=== PATIENT | male | born 1970 | race Caucasian/White ===

== ENCOUNTER 2016-11-11 19:57 | Inpatient (IN) | payer MEDICAID ==
[~2016-11-11] VITALS: Ht 167.6 cm; Wt 90.0 kg
[2016-11-11 22:40] LABS: BASOPHIL % 1.2 % (0-2); PLATELET COUNT 320 x10^3mcL (130-400); RED CELL DISTRIBUTION WIDTH 13.7 % (11.5-14.5)
[2016-11-11 22:51] LABS: CALCIUM 8.4 mg/dL (8.5-10.1); CARBON DIOXIDE 24.8 mmol/L (21-32); CHLORIDE SERUM 104 mmol/L (98-107); CREATININE SERUM 1.2 mg/dL (0.7-1.3); GFR1 > 60 mL/min; GLUCOSE SERUM 114 mg/dL (74-106); POTASSIUM SERUM 3.8 mmol/L (3.5-5.1); SODIUM SERUM 138 mmol/L (136-145)
[2016-11-11 22:54] LABS: ALKALINE PHOSPHATASE 80 U/L (46-116); ALT/SGPT 32 U/L (16-63); AST/SGOT 21 U/L (15-37); BILIRUBIN TOTAL 0.1 mg/dL (0.20-1.00); TOTAL PROTEIN, SERUM 7.4 g/dL (6.4-8.2)
[2016-11-12 00:07] VITALS: BP 92/73
[2016-11-12 00:19] LABS: MAGNESIUM 1.9 mg/dL (1.8-2.4); PHOSPHOROUS 3.4 mg/dL (2.5-4.9)
[2016-11-12 00:21] LABS: CHOLESTEROL/HDL RATIO 4.8
[2016-11-12 00:24] LABS: FREE T4 1.07 ng/dL (0.76-1.46); FREE THYROXINE INDEX 2.3 ug/dL (1.4-4.5); T4(THYROXINE) 6.5 ug/dL (4.7-13.3)
[2016-11-12 00:27] LABS: T3 TOTAL 1.31 ng/mL
[2016-11-12 05:20] VITALS: BP 114/67
[2016-11-12 05:43] LABS: microscopic required? NO
[2016-11-12 05:52] LABS: UA SPECIFIC GRAVITY 1.025 (1.005-1.035); urine erythrocyte NEGATIVE (NEGATIVE)
[2016-11-12 07:17] LABS: BASOPHIL % 0.1 % (0-2); PLATELET COUNT 303 x10^3mcL (130-400); RED CELL DISTRIBUTION WIDTH 13.4 % (11.5-14.5)
[2016-11-12 07:48] LABS: CALCIUM 8.3 mg/dL (8.5-10.1); CARBON DIOXIDE 23.8 mmol/L (21-32); CHLORIDE SERUM 107 mmol/L (98-107); GFR1 > 60 mL/min; GLUCOSE SERUM 146 mg/dL (74-106); MAGNESIUM 1.9 mg/dL (1.8-2.4); PHOSPHOROUS 3.5 mg/dL (2.5-4.9); POTASSIUM SERUM 4.8 mmol/L (3.5-5.1); SODIUM SERUM 142 mmol/L (136-145)
[2016-11-12 07:50] VITALS: BP 114/67
[2016-11-12] MEDS ORDERED: ZIT250 PO (10:23)
[2016-11-12 10:32] VITALS: BP 114/67
[2016-11-12 12:59] VITALS: BP 112/56
== END 2016-11-12 13:40 | disposition home or self-care (01) | DRG 139 ==
LOC: ED 19:57 → DU 22:41
PROVIDERS: Emergency Medicine; Family Medicine; ADMIT Student in an Organized Health Care Education/Training Program
DX: J18.9 Pneumonia, unspecified organism (principal); E44.0 Moderate protein-calorie malnutrition; E83.51 Hypocalcemia; E11.65 Type 2 diabetes mellitus with hyperglycemia; E46 Unspecified protein-calorie malnutrition; D64.9 Anemia, unspecified; F17.210 Nicotine dependence, cigarettes, uncomplicated; Z85.520 Personal history of malignant carcinoid tumor of kidney; Z90.5 Acquired absence of kidney
CPT/HCPCS: 36600; 82962; 83880; 84439; J0696; J1956; J7030; J7512; J7613; J7644; Q0092

== ENCOUNTER 2017-02-01 11:05 | Inpatient (IN) | payer MEDICAID ==
[~2017-02-01] VITALS: Ht 175.3 cm; Wt 87.7 kg
[~2017-02-01 11:05] MED LIST: ZIT250 PO
[2017-02-01 13:26] LABS: BASOPHIL % 0.6 % (0-2); PLATELET COUNT 206 x10^3mcL (130-400)
[2017-02-01 13:33] LABS: CALCIUM 8.6 mg/dL (8.5-10.1); CARBON DIOXIDE 29.6 mmol/L (21-32); CHLORIDE SERUM 103 mmol/L (98-107); GFR1 > 60 mL/min; GLUCOSE SERUM 97 mg/dL (74-106); POTASSIUM SERUM 4.1 mmol/L (3.5-5.1); SODIUM SERUM 138 mmol/L (136-145)
[2017-02-01 17:03] VITALS: BP 124/78
[2017-02-01 17:16] VITALS: BP 128/78
[2017-02-01 17:28] VITALS: BP 128/78
[2017-02-01 17:34] LABS: T3 TOTAL 1.18 ng/mL
[2017-02-01 17:37] VITALS: Ht 175.3 cm; Wt 87.7 kg
[2017-02-01 17:38] LABS: MAGNESIUM 1.9 mg/dL (1.8-2.4); PHOSPHOROUS 3.7 mg/dL (2.5-4.9)
[2017-02-01 18:00] LABS: FREE T4 0.97 ng/dL (0.76-1.46); FREE THYROXINE INDEX 2.7 ug/dL (1.4-4.5); T4(THYROXINE) 7.4 ug/dL (4.7-13.3)
[2017-02-01 21:20] VITALS: BP 113/64
[2017-02-02 06:01] VITALS: BP 123/65
[2017-02-02 07:52] LABS: BASOPHIL % 0.4 % (0-2); PLATELET COUNT 198 x10^3mcL (130-400)
[2017-02-02 07:53] LABS: RED CELL DISTRIBUTION WIDTH 14.9 % (11.5-14.5)
[2017-02-02 08:00] VITALS: BP 110/70
[2017-02-02 08:30] VITALS: BP 110/70
[2017-02-02 12:10] LABS: microscopic required? YES; urine erythrocyte TRACE (NEGATIVE)
[2017-02-02 12:30] LABS: AMPHETAMINE QUAL UR NONE DETECTED (NEG <=1000)
[2017-02-02 12:43] VITALS: BP 114/61
[2017-02-02 17:47] VITALS: BP 108/72
[2017-02-02 20:52] VITALS: BP 113/79
[2017-02-03 05:40] VITALS: BP 101/68
[2017-02-03 06:40] LABS: BASOPHIL % 0.5 % (0-2); PLATELET COUNT 186 x10^3mcL (130-400)
[2017-02-03 06:41] LABS: RED CELL DISTRIBUTION WIDTH 14.7 % (11.5-14.5)
[2017-02-03 06:56] LABS: CALCIUM 8.3 mg/dL (8.5-10.1); CARBON DIOXIDE 26.7 mmol/L (21-32); CHLORIDE SERUM 106 mmol/L (98-107); CREATININE SERUM 1.1 mg/dL (0.7-1.3); GFR1 > 60 mL/min; GLUCOSE SERUM 105 mg/dL (74-106); PHOSPHOROUS 3.3 mg/dL (2.5-4.9); POTASSIUM SERUM 4.1 mmol/L (3.5-5.1); SODIUM SERUM 141 mmol/L (136-145)
[2017-02-03 08:53] VITALS: BP 114/57
[2017-02-03 12:04] VITALS: BP 114/74
[2017-02-03 18:00] VITALS: BP 141/81
[2017-02-03 21:31] VITALS: BP 120/63
[2017-02-04 05:48] VITALS: BP 118/72
[2017-02-04 06:52] LABS: BASOPHIL % 0.5 % (0-2); PLATELET COUNT 182 x10^3mcL (130-400)
[2017-02-04 07:09] LABS: RED CELL DISTRIBUTION WIDTH 14.9 % (11.5-14.5)
[2017-02-04 07:39] LABS: CALCIUM 8.5 mg/dL (8.5-10.1); CARBON DIOXIDE 26.8 mmol/L (21-32); CHLORIDE SERUM 105 mmol/L (98-107); CREATININE SERUM 1.2 mg/dL (0.7-1.3); GFR1 > 60 mL/min; GLUCOSE SERUM 107 mg/dL (74-106); MAGNESIUM 1.7 mg/dL (1.8-2.4); PHOSPHOROUS 3.9 mg/dL (2.5-4.9); POTASSIUM SERUM 4.3 mmol/L (3.5-5.1); SODIUM SERUM 140 mmol/L (136-145)
[2017-02-04 09:38] VITALS: BP 118/72
[2017-02-04 13:02] VITALS: BP 114/72
[2017-02-04 14:30] VITALS: BP 122/71
[2017-02-04 17:29] VITALS: BP 109/66
[2017-02-04 20:50] VITALS: BP 110/67
[2017-02-04 22:06] LABS: microscopic required? NO
[2017-02-04 22:15] LABS: UA SPECIFIC GRAVITY 1.015 (1.005-1.035); urine erythrocyte NEGATIVE (NEGATIVE)
[2017-02-05 06:02] VITALS: BP 122/77
[2017-02-05 06:29] LABS: CALCIUM 8.4 mg/dL (8.5-10.1); CHLORIDE SERUM 105 mmol/L (98-107); CREATININE SERUM 1.2 mg/dL (0.7-1.3); GFR1 > 60 mL/min; GLUCOSE SERUM 100 mg/dL (74-106); MAGNESIUM 1.7 mg/dL (1.8-2.4); POTASSIUM SERUM 4.3 mmol/L (3.5-5.1); SODIUM SERUM 140 mmol/L (136-145)
[2017-02-05] MEDS ORDERED: ATORVASTATIN CA40 M1 PO (08:50)
[2017-02-05] MEDS ORDERED: LEVAQUIN750 MG PO (08:50)
[2017-02-05] MEDS ORDERED: LAC PO (08:51)
[2017-02-05] MEDS ORDERED: MAG PO (08:51)
[2017-02-05 13:01] VITALS: BP 124/74
[2017-02-05 14:28] VITALS: BP 124/74
== END 2017-02-05 15:19 | disposition home or self-care (01) | DRG 137 ==
LOC: ED 11:05 → DU 16:06
PROVIDERS: Emergency Medicine Emergency Medical Services; Internal Medicine; Student in an Organized Health Care Education/Training Program; ADMIT Family Medicine Sports Medicine
PROC: 0BB48ZX Excision of Right Upper Lobe Bronchus, Via Natural or Artificial Opening Endoscopic, Diagnostic (ICD-10-PCS; 2017-02-04)
PROC: 0BBD8ZX Excision of Right Middle Lung Lobe, Via Natural or Artificial Opening Endoscopic, Diagnostic (ICD-10-PCS; 2017-02-04)
PROC: 0BBF8ZX Excision of Right Lower Lung Lobe, Via Natural or Artificial Opening Endoscopic, Diagnostic (ICD-10-PCS; principal; 2017-02-04 14:00)
DX: J69.0 Pneumonitis due to inhalation of food and vomit (principal); D68.69 Other thrombophilia; B44.81 Allergic bronchopulmonary aspergillosis; E11.9 Type 2 diabetes mellitus without complications; J44.9 Chronic obstructive pulmonary disease, unspecified; E78.2 Mixed hyperlipidemia; R31.9 Hematuria, unspecified; Z90.5 Acquired absence of kidney; Z68.28 Body mass index [BMI] 28.0-28.9, adult; F17.210 Nicotine dependence, cigarettes, uncomplicated; Z85.520 Personal history of malignant carcinoid tumor of kidney; Z91.19 Patient's noncompliance with other medical treatment and regimen
CPT/HCPCS: 82962; 83880; 84439; 87116; 87206; 90658; 94150; C9113; J0330; J2250; J2270; J2543; J2704; J3010; J7030; J7042; J7120; J7620; Q0092; Q9967

== ENCOUNTER 2017-05-07 13:07 | Emergency (ER) | payer SELFPAY ==
[~2017-05-07] VITALS: Ht 167.6 cm; Wt 86.6 kg
[~2017-05-07 13:07] MED LIST changes: +ATORVASTATIN CA40 M1 PO; +LAC PO; +LEVAQUIN750 MG PO; +MAG PO
[2017-05-07 13:21] VITALS: Ht 167.6 cm; Wt 86.6 kg
[2017-05-07 17:23] LABS: PLATELET COUNT 241 x10^3mcL (130-400); RED CELL DISTRIBUTION WIDTH 12.8 % (11.5-14.5)
[2017-05-07 17:24] LABS: BASOPHIL % 2.4 % (0-2); CALCIUM 7.8 mg/dL (8.5-10.1); CARBON DIOXIDE 28.6 mmol/L (21-32); CHLORIDE SERUM 107 mmol/L (98-107); GFR1 > 60 mL/min; GLUCOSE SERUM 96 mg/dL (74-106); POTASSIUM SERUM 4.2 mmol/L (3.5-5.1); SODIUM SERUM 139 mmol/L (136-145)
[2017-05-07 17:37] LABS: ALKALINE PHOSPHATASE 79 U/L (46-116); ALT/SGPT 26 U/L (16-63); AST/SGOT 13 U/L (15-37); BILIRUBIN TOTAL 0.15 mg/dL (0.20-1.00); C REACTIVE PROTEIN 1.3 mg/dL (<=0.9); CREATINE KINASE 71 U/L (39-308); TOTAL PROTEIN, SERUM 6.3 g/dL (6.4-8.2)
[2017-05-07 17:39] LABS: ALBUMIN 2.9 g/dL (3.4-5.0)
[2017-05-07 18:06] LABS: ERYTHROCYTE SED RATE 20 mm/hr (0-15)
[2017-05-07 18:47] LABS: CK-MB < 0.5 ng/mL (0-3.6)
[2017-05-07 19:26] VITALS: BP 124/82
[2017-05-07 23:48] LABS: FREE T4 1.09 ng/dL (0.76-1.46); FREE THYROXINE INDEX 2.5 ug/dL (1.4-4.5); T4(THYROXINE) 6.5 ug/dL (4.7-13.3)
[2017-05-08 13:50] LABS: T3 TOTAL 1.08 ng/mL
== END 2017-05-07 19:32 | disposition home or self-care (01) ==
LOC: ED 13:07
PROVIDERS: Specialist
DX: R91.8 Other nonspecific abnormal finding of lung field (principal); M54.5 Low back pain; R04.2 Hemoptysis; F17.210 Nicotine dependence, cigarettes, uncomplicated
CPT/HCPCS: 36600; 83880; 84439; J0696; J1170; J1885; Q0162; Q9967

== ENCOUNTER 2017-10-22 21:01 | Emergency (ER) | payer MEDICAID ==
[~2017-10-22] VITALS: Ht 175.3 cm; Wt 82.1 kg
[2017-10-22 21:09] VITALS: Ht 175.3 cm; Wt 82.1 kg
[2017-10-22 23:07] LABS: CARBON DIOXIDE 29.5 mmol/L (21-32); CHLORIDE SERUM 102 mmol/L (98-107); CREATININE SERUM 1.3 mg/dL (0.7-1.3); GFR1 > 60 mL/min; GLUCOSE SERUM 104 mg/dL (74-106); POTASSIUM SERUM 3.9 mmol/L (3.5-5.1); SODIUM SERUM 137 mmol/L (136-145)
[2017-10-22 23:12] LABS: ALBUMIN 3.5 g/dL (3.4-5.0); ALKALINE PHOSPHATASE 112 U/L (46-116); ALT/SGPT 31 U/L (16-63); AST/SGOT 22 U/L (15-37); BILIRUBIN TOTAL 0.23 mg/dL (0.20-1.00)
[2017-10-22 23:17] LABS: BASOPHIL % 0.5 % (0-2); PLATELET COUNT 249 x10^3mcL (130-400); RED CELL DISTRIBUTION WIDTH 13.6 % (11.5-14.5)
[2017-10-23 02:03] VITALS: BP 94/71
== END 2017-10-23 02:03 | disposition home or self-care (01) ==
LOC: ED 21:01
PROVIDERS: Emergency Medicine
DX: J18.9 Pneumonia, unspecified organism (principal)
CPT/HCPCS: J0456; J0696; J1885; J2270; J2405; J7040; J7050

== ENCOUNTER 2017-10-28 22:46 | Inpatient (IN) | payer MEDICAID ==
[~2017-10-28] VITALS: Ht 167.6 cm; Wt 85.8 kg
[2017-10-28 23:58] LABS: BASOPHIL % 0.5 % (0-2); PLATELET COUNT 262 x10^3mcL (130-400); RED CELL DISTRIBUTION WIDTH 13.8 % (11.5-14.5)
[2017-10-29] VITALS (8 sets, daily range): BP systolic 98–128; BP diastolic 55–82
[2017-10-29 00:08] LABS: CALCIUM 8.5 mg/dL (8.5-10.1); CARBON DIOXIDE 26.8 mmol/L (21-32); CHLORIDE SERUM 105 mmol/L (98-107); CREATININE SERUM 1.1 mg/dL (0.7-1.3); GFR1 > 60 mL/min; GLUCOSE SERUM 140 mg/dL (74-106); POTASSIUM SERUM 3.6 mmol/L (3.5-5.1); SODIUM SERUM 140 mmol/L (136-145)
[2017-10-29 00:21] LABS: ALKALINE PHOSPHATASE 107 U/L (46-116); ALT/SGPT 68 U/L (16-63); AST/SGOT 31 U/L (15-37); BILIRUBIN TOTAL 0.2 mg/dL (0.20-1.00)
[2017-10-29 00:24] LABS: ALBUMIN 3.2 g/dL (3.4-5.0)
[2017-10-29 03:08] LABS: PHOSPHOROUS 3.8 mg/dL (2.5-4.9)
[2017-10-29 03:12] LABS: AMPHETAMINE QUAL UR NONE DETECTED (See below)
[2017-10-29 06:22] LABS: UA SPECIFIC GRAVITY >=1.030 (1.005-1.035); microscopic required? YES; urine erythrocyte 1+ (NEGATIVE)
[2017-10-30 05:41] VITALS: BP 123/82
[2017-10-30 06:01] LABS: BASOPHIL % 0.6 % (0-2); PLATELET COUNT 256 x10^3mcL (130-400); RED CELL DISTRIBUTION WIDTH 13.6 % (11.5-14.5)
[2017-10-30 06:26] LABS: CALCIUM 9.1 mg/dL (8.5-10.1); CARBON DIOXIDE 29.2 mmol/L (21-32); CHLORIDE SERUM 105 mmol/L (98-107); CREATININE SERUM 1.1 mg/dL (0.7-1.3); GFR1 > 60 mL/min; GLUCOSE SERUM 102 mg/dL (74-106); MAGNESIUM 1.8 mg/dL (1.8-2.4); PHOSPHOROUS 3.7 mg/dL (2.5-4.9); POTASSIUM SERUM 4.2 mmol/L (3.5-5.1); SODIUM SERUM 141 mmol/L (136-145)
[2017-10-30 09:25] VITALS: BP 121/62
[2017-10-30 13:30] VITALS: BP 124/77
[2017-10-30 17:40] VITALS: BP 133/89
[2017-10-30 21:01] VITALS: BP 113/71
[2017-10-31] VITALS (7 sets, daily range): BP systolic 100–139; BP diastolic 56–81; Ht 167.6 cm; Wt 85.8 kg
[2017-10-31 06:07] LABS: BASOPHIL % 0.5 % (0-2); PLATELET COUNT 245 x10^3mcL (130-400); RED CELL DISTRIBUTION WIDTH 13.7 % (11.5-14.5)
[2017-10-31 06:21] LABS: CARBON DIOXIDE 27.1 mmol/L (21-32); CHLORIDE SERUM 106 mmol/L (98-107); GFR1 > 60 mL/min; GLUCOSE SERUM 96 mg/dL (74-106); POTASSIUM SERUM 3.9 mmol/L (3.5-5.1); SODIUM SERUM 141 mmol/L (136-145)
[2017-11-01 05:53] VITALS: BP 118/74
[2017-11-01 06:15] LABS: CALCIUM 8.5 mg/dL (8.5-10.1); CARBON DIOXIDE 27.8 mmol/L (21-32); CHLORIDE SERUM 104 mmol/L (98-107); GFR1 > 60 mL/min; GLUCOSE SERUM 92 mg/dL (74-106); POTASSIUM SERUM 3.9 mmol/L (3.5-5.1); SODIUM SERUM 140 mmol/L (136-145)
[2017-11-01 06:24] LABS: BASOPHIL % 0.7 % (0-2); PLATELET COUNT 253 x10^3mcL (130-400); RED CELL DISTRIBUTION WIDTH 13.6 % (11.5-14.5)
[2017-11-01 09:47] VITALS: BP 120/72
[2017-11-01 13:28] VITALS: BP 94/61
[2017-11-01 17:23] VITALS: BP 110/77
[2017-11-01 20:28] VITALS: BP 127/70
[2017-11-02 05:33] VITALS: BP 132/67
[2017-11-02 09:42] VITALS: BP 106/57
[2017-11-02 12:08] LABS: BASOPHIL % 0.4 % (0-2); PLATELET COUNT 272 x10^3mcL (130-400)
[2017-11-02 12:11] LABS: CALCIUM 8.2 mg/dL (8.5-10.1); CHLORIDE SERUM 105 mmol/L (98-107); GFR1 > 60 mL/min; GLUCOSE SERUM 97 mg/dL (74-106); POTASSIUM SERUM 4.1 mmol/L (3.5-5.1); SODIUM SERUM 142 mmol/L (136-145)
[2017-11-02 13:46] VITALS: BP 128/64
[2017-11-02 18:07] VITALS: BP 130/76
[2017-11-02 20:37] VITALS: BP 129/73
[2017-11-03 05:04] VITALS: BP 122/68
[2017-11-03 05:52] LABS: BASOPHIL % 0.8 % (0-2); PLATELET COUNT 255 x10^3mcL (130-400); RED CELL DISTRIBUTION WIDTH 14.2 % (11.5-14.5)
[2017-11-03 06:06] LABS: CALCIUM 7.8 mg/dL (8.5-10.1); CARBON DIOXIDE 25.9 mmol/L (21-32); CHLORIDE SERUM 107 mmol/L (98-107); GFR1 > 60 mL/min; GLUCOSE SERUM 96 mg/dL (74-106); POTASSIUM SERUM 4.1 mmol/L (3.5-5.1); SODIUM SERUM 141 mmol/L (136-145)
[2017-11-03 09:10] VITALS: BP 107/56
[2017-11-03 13:30] VITALS: BP 114/64
[2017-11-03 17:03] VITALS: BP 122/77
[2017-11-03 18:22] VITALS: BP 122/77
[2017-11-03 20:51] VITALS: BP 130/67
[2017-11-04 05:23] VITALS: BP 111/70
[2017-11-04 06:22] LABS: BASOPHIL % 0.6 % (0-2); PLATELET COUNT 250 x10^3mcL (130-400); RED CELL DISTRIBUTION WIDTH 14.1 % (11.5-14.5)
[2017-11-04 06:47] LABS: CALCIUM 8.5 mg/dL (8.5-10.1); CARBON DIOXIDE 24.3 mmol/L (21-32); CHLORIDE SERUM 105 mmol/L (98-107); GFR1 > 60 mL/min; GLUCOSE SERUM 118 mg/dL (74-106); POTASSIUM SERUM 3.7 mmol/L (3.5-5.1); SODIUM SERUM 141 mmol/L (136-145)
[2017-11-04 09:26] VITALS: BP 116/66
[2017-11-04 13:09] VITALS: BP 134/77
[2017-11-04 16:36] VITALS: BP 121/77
[2017-11-04 19:54] VITALS: BP 130/70
[2017-11-04 20:05] VITALS: BP 122/73
[2017-11-05 05:22] VITALS: BP 124/64
[2017-11-05 06:03] LABS: BASOPHIL % 0.6 % (0-2); PLATELET COUNT 249 x10^3mcL (130-400); RED CELL DISTRIBUTION WIDTH 14.2 % (11.5-14.5)
[2017-11-05 06:18] LABS: ALKALINE PHOSPHATASE 112 U/L (46-116); ALT/SGPT 111 U/L (16-63); AST/SGOT 38 U/L (15-37); BILIRUBIN TOTAL 0.2 mg/dL (0.20-1.00); CALCIUM 8.1 mg/dL (8.5-10.1); CARBON DIOXIDE 25.6 mmol/L (21-32); CHLORIDE SERUM 104 mmol/L (98-107); GFR1 > 60 mL/min; GLUCOSE SERUM 104 mg/dL (74-106); POTASSIUM SERUM 3.6 mmol/L (3.5-5.1); SODIUM SERUM 141 mmol/L (136-145); TOTAL PROTEIN, SERUM 6.7 g/dL (6.4-8.2)
[2017-11-05 06:19] LABS: ALBUMIN 3.1 g/dL (3.4-5.0)
[2017-11-05 08:00] VITALS: BP 116/63
[2017-11-05] MEDS ORDERED: TESSALON PERLE100 MG PO (12:40)
[2017-11-05 12:50] VITALS: BP 137/84
[2017-11-05 14:02] VITALS: BP 137/84
== END 2017-11-05 15:00 | disposition home or self-care (01) | DRG 139 ==
LOC: ED 22:46 → DU 23:30
PROVIDERS: Emergency Medicine; Internal Medicine
PROC: 0BB78ZX Excision of Left Main Bronchus, Via Natural or Artificial Opening Endoscopic, Diagnostic (ICD-10-PCS; principal; 2017-11-01 08:00)
DX: J18.9 Pneumonia, unspecified organism (principal); C78.02 Secondary malignant neoplasm of left lung; C79.31 Secondary malignant neoplasm of brain; E44.0 Moderate protein-calorie malnutrition; G90.8 Other disorders of autonomic nervous system; R04.2 Hemoptysis; R73.03 Prediabetes; Z90.5 Acquired absence of kidney; Z68.30 Body mass index [BMI] 30.0-30.9, adult; Z85.520 Personal history of malignant carcinoid tumor of kidney
CPT/HCPCS: 83880; 87116; 87206; A9577; J0330; J0696; J1956; J2405; J2704; J3010; J7030; J7120; J7620; Q0092; Q9967

== ENCOUNTER 2017-12-23 23:39 | Emergency (ER) | payer MEDICAID ==
[~2017-12-23] VITALS: Ht 175.3 cm; Wt 89.1 kg
[~2017-12-23 23:39] MED LIST changes: +TESSALON PERLE100 MG PO
[2017-12-24 00:47] LABS: BASOPHIL % 0.7 % (0-2); PLATELET COUNT 236 x10^3mcL (130-400); RED CELL DISTRIBUTION WIDTH 13.7 % (11.5-14.5)
[2017-12-24 00:49] LABS: CARBON DIOXIDE 29.3 mmol/L (21-32); CHLORIDE SERUM 98 mmol/L (98-107); CREATININE SERUM 1.1 mg/dL (0.7-1.3); GFR1 > 60 mL/min; GLUCOSE SERUM 94 mg/dL (74-106); POTASSIUM SERUM 3.6 mmol/L (3.5-5.1); SODIUM SERUM 139 mmol/L (136-145)
[2017-12-24 00:55] LABS: ALBUMIN 3.6 g/dL (3.4-5.0); ALKALINE PHOSPHATASE 108 U/L (46-116); ALT/SGPT 35 U/L (16-63); AST/SGOT 24 U/L (15-37); BILIRUBIN TOTAL 0.2 mg/dL (0.20-1.00); TOTAL PROTEIN, SERUM 7.8 g/dL (6.4-8.2)
[2017-12-24 01:03] LABS: CK-MB < 0.5 ng/mL (0-3.6); CREATINE KINASE 74 U/L (39-308)
[2017-12-24 01:40] LABS: UA SPECIFIC GRAVITY >=1.030 (1.005-1.035); microscopic required? YES; urine erythrocyte NEGATIVE (NEGATIVE)
[2017-12-24 02:29] VITALS: BP 106/64
== END 2017-12-24 02:29 | disposition home or self-care (01) ==
LOC: ED 23:39
PROVIDERS: Emergency Medicine
DX: R05 Cough (principal); C34.90 Malignant neoplasm of unspecified part of unspecified bronchus or lung
CPT/HCPCS: J7030; J7620; Q0092

== ENCOUNTER 2018-01-01 01:04 | Inpatient (IN) | payer MEDICAID ==
[~2018-01-01] VITALS: Ht 172.7 cm; Wt 87.8 kg
[2018-01-01] VITALS (7 sets, daily range): BP systolic 113–124; BP diastolic 63–70; Ht 172.7 cm; Wt 87.8 kg
[2018-01-01 03:31] LABS: BASOPHIL % 0.5 % (0-2); PLATELET COUNT 257 x10^3mcL (130-400)
[2018-01-01 03:40] LABS: CALCIUM 8.7 mg/dL (8.5-10.1); CARBON DIOXIDE 24.1 mmol/L (21-32); CHLORIDE SERUM 103 mmol/L (98-107); CREATININE SERUM 1.2 mg/dL (0.7-1.3); GFR1 > 60 mL/min; GLUCOSE SERUM 106 mg/dL (74-106); POTASSIUM SERUM 3.7 mmol/L (3.5-5.1); SODIUM SERUM 134 mmol/L (136-145)
[2018-01-01 03:45] LABS: ALBUMIN 3.6 g/dL (3.4-5.0); ALKALINE PHOSPHATASE 105 U/L (46-116); ALT/SGPT 37 U/L (16-63); AST/SGOT 11 U/L (15-37); TOTAL PROTEIN, SERUM 7.7 g/dL (6.4-8.2)
[2018-01-01 03:56] LABS: T3 TOTAL 1.39 ng/mL
[2018-01-01 04:22] LABS: CHOLESTEROL/HDL RATIO 5.5; MAGNESIUM 1.7 mg/dL (1.8-2.4); PHOSPHOROUS 5.2 mg/dL (2.5-4.9)
[2018-01-01 04:26] LABS: FREE THYROXINE INDEX 2.4 ug/dL (1.4-4.5); T4(THYROXINE) 7.8 ug/dL (4.7-13.3)
[2018-01-01 05:31] LABS: microscopic required? NO
[2018-01-01 05:46] LABS: UA SPECIFIC GRAVITY >=1.030 (1.005-1.035); urine erythrocyte NEGATIVE (NEGATIVE)
[2018-01-01 06:01] LABS: AMPHETAMINE QUAL UR NONE DETECTED (See below)
[2018-01-02 05:08] VITALS: BP 114/51
[2018-01-02 06:45] LABS: BASOPHIL % 0.2 % (0-2); PLATELET COUNT 228 x10^3mcL (130-400); RED CELL DISTRIBUTION WIDTH 13.8 % (11.5-14.5)
[2018-01-02 06:56] LABS: CALCIUM 8.4 mg/dL (8.5-10.1); CARBON DIOXIDE 22.1 mmol/L (21-32); CHLORIDE SERUM 103 mmol/L (98-107); CREATININE SERUM 1.3 mg/dL (0.7-1.3); GFR1 > 60 mL/min; GLUCOSE SERUM 158 mg/dL (74-106); LIPASE 130 IU/L (73-393); MAGNESIUM 1.5 mg/dL (1.8-2.4); SODIUM SERUM 139 mmol/L (136-145)
[2018-01-02 09:21] VITALS: BP 122/71
[2018-01-02 12:54] VITALS: BP 121/58
[2018-01-02 17:34] VITALS: BP 102/54
[2018-01-02 20:17] VITALS: BP 133/58
[2018-01-03 05:35] VITALS: BP 146/64
[2018-01-03 06:42] LABS: PLATELET COUNT 235 x10^3mcL (130-400); RED CELL DISTRIBUTION WIDTH 13.8 % (11.5-14.5)
[2018-01-03 06:51] LABS: CARBON DIOXIDE 23.7 mmol/L (21-32); CHLORIDE SERUM 105 mmol/L (98-107); CREATININE SERUM 1.1 mg/dL (0.7-1.3); GFR1 > 60 mL/min; GLUCOSE SERUM 142 mg/dL (74-106); LIPASE 93 IU/L (73-393); PHOSPHOROUS 3.9 mg/dL (2.5-4.9); POTASSIUM SERUM 4.1 mmol/L (3.5-5.1); SODIUM SERUM 137 mmol/L (136-145)
[2018-01-03 06:56] LABS: BASOPHIL % 0 % (0-2)
[2018-01-03 09:04] VITALS: BP 134/68
[2018-01-03] MEDS ORDERED: LEVAQUIN750 MG PO (11:29)
[2018-01-03] MEDS ORDERED: ATIVAN0.5 M1 PO (11:30)
[2018-01-03] MEDS ORDERED: PREDNISONE20 MG PO (11:31)
[2018-01-03] MEDS ORDERED: NEBULIZER MACHINE (11:37)
[2018-01-03] MEDS ORDERED: IPRATROPIUM BROM3 M2 IH (11:42)
[2018-01-03 11:43] VITALS: BP 112/53
[2018-01-03 11:49] VITALS: BP 134/68
[2018-01-03] MEDS ORDERED: ROBDML PO (13:56)
== END 2018-01-03 16:31 | disposition home or self-care (01) | DRG 136 ==
LOC: ED 01:04 → DU 03:13
PROVIDERS: Emergency Medicine; Internal Medicine
DX: C78.02 Secondary malignant neoplasm of left lung (principal); C79.31 Secondary malignant neoplasm of brain; E83.42 Hypomagnesemia; E83.39 Other disorders of phosphorus metabolism; E87.1 Hypo-osmolality and hyponatremia; J40 Bronchitis, not specified as acute or chronic; R73.03 Prediabetes; Z90.5 Acquired absence of kidney; Z68.29 Body mass index [BMI] 29.0-29.9, adult; Z87.891 Personal history of nicotine dependence; Z85.520 Personal history of malignant carcinoid tumor of kidney
CPT/HCPCS: 36600; 84439; 94150; J0456; J0696; J1956; J2270; J2543; J2920; J7030; J7620; Q0092

== ENCOUNTER 2018-03-25 21:10 | Inpatient (IN) | payer OTHER ==
[~2018-03-25] VITALS: Ht 172.7 cm; Wt 85.4 kg
[~2018-03-25 21:10] MED LIST changes: +ATIVAN0.5 M1 PO; +IPRATROPIUM BROM3 M2 IH; +NEBULIZER MACHINE; +PREDNISONE20 MG PO; +ROBDML PO
[2018-03-25 21:28] VITALS: Ht 172.7 cm; Wt 85.4 kg
[2018-03-25 22:38] LABS: BASOPHIL % 0.7 % (0-2); PLATELET COUNT 240 x10^3mcL (130-400); RED CELL DISTRIBUTION WIDTH 13.8 % (11.5-14.5)
[2018-03-25 22:49] LABS: CARBON DIOXIDE 23.9 mmol/L (21-32); CHLORIDE SERUM 93 mmol/L (98-107); CREATININE SERUM 1.8 mg/dL (0.7-1.3); GFR1 43 mL/min; GLUCOSE SERUM 117 mg/dL (74-106); POTASSIUM SERUM 4.3 mmol/L (3.5-5.1); SODIUM SERUM 128 mmol/L (136-145)
[2018-03-25 22:55] LABS: ALBUMIN 2.9 g/dL (3.4-5.0); ALKALINE PHOSPHATASE 71 U/L (46-116); ALT/SGPT 34 U/L (16-63); AST/SGOT 21 U/L (15-37); BILIRUBIN TOTAL 1.7 mg/dL (0.20-1.00); MAGNESIUM 1.5 mg/dL (1.8-2.4); TOTAL PROTEIN, SERUM 7.6 g/dL (6.4-8.2)
[2018-03-26 00:18] LABS: UA SPECIFIC GRAVITY >=1.030 (1.005-1.035); microscopic required? YES; urine erythrocyte 3+ (NEGATIVE)
[2018-03-26 03:04] LABS: T3 TOTAL 1.01 ng/mL
[2018-03-26 03:10] LABS: CHOLESTEROL/HDL RATIO 5.4; PHOSPHOROUS 5.2 mg/dL (2.5-4.9)
[2018-03-26 03:15] LABS: FREE T4 0.99 ng/dL (0.76-1.46); T4(THYROXINE) 5.8 ug/dL (4.7-13.3)
[2018-03-26 07:36] LABS: CREATININE SERUM 1.6 mg/dL (0.7-1.3); MAGNESIUM 1.5 mg/dL (1.8-2.4); PHOSPHOROUS 4.2 mg/dL (2.5-4.9); POTASSIUM SERUM 4.2 mmol/L (3.5-5.1)
[2018-03-26 08:02] LABS: BASOPHIL % 0.2 % (0-2); PLATELET COUNT 217 x10^3mcL (130-400); RED CELL DISTRIBUTION WIDTH 13.9 % (11.5-14.5)
[2018-03-26 09:54] VITALS: BP 117/60
[2018-03-26 14:25] VITALS: BP 107/66
[2018-03-26 16:01] LABS: AMPHETAMINE QUAL UR NONE DETECTED (See below)
[2018-03-26 17:17] VITALS: BP 118/67
[2018-03-26 21:07] VITALS: BP 18121/7
[2018-03-26 22:26] VITALS: BP 121/75
[2018-03-27 05:43] VITALS: BP 118/63
[2018-03-27 07:01] LABS: BASOPHIL % 0.3 % (0-2); PLATELET COUNT 228 x10^3mcL (130-400); RED CELL DISTRIBUTION WIDTH 13.9 % (11.5-14.5)
[2018-03-27 07:02] LABS: CALCIUM 9.4 mg/dL (8.5-10.1); CARBON DIOXIDE 25.6 mmol/L (21-32); CREATININE SERUM 1.8 mg/dL (0.7-1.3); MAGNESIUM 1.7 mg/dL (1.8-2.4); PHOSPHOROUS 3.6 mg/dL (2.5-4.9); POTASSIUM SERUM 3.9 mmol/L (3.5-5.1)
[2018-03-27 10:18] VITALS: BP 105/55
[2018-03-27 17:17] VITALS: BP 115/57
[2018-03-27 20:49] VITALS: BP 111/72
[2018-03-28 05:12] VITALS: BP 117/68
[2018-03-28 07:11] LABS: BASOPHIL % 0.2 % (0-2); PLATELET COUNT 242 x10^3mcL (130-400); RED CELL DISTRIBUTION WIDTH 13.7 % (11.5-14.5)
[2018-03-28 07:44] LABS: CALCIUM 8.6 mg/dL (8.5-10.1); CARBON DIOXIDE 24.8 mmol/L (21-32); CREATININE SERUM 1.6 mg/dL (0.7-1.3); MAGNESIUM 1.7 mg/dL (1.8-2.4); PHOSPHOROUS 2.8 mg/dL (2.5-4.9); POTASSIUM SERUM 3.2 mmol/L (3.5-5.1)
[2018-03-28 08:36] VITALS: BP 104/65
[2018-03-28 16:23] VITALS: BP 107/66
[2018-03-28 20:28] VITALS: BP 128/65
[2018-03-29 05:38] VITALS: BP 120/77
[2018-03-29 06:44] LABS: CALCIUM 9.1 mg/dL (8.5-10.1); CARBON DIOXIDE 27.6 mmol/L (21-32); CREATININE SERUM 1.6 mg/dL (0.7-1.3); MAGNESIUM 1.7 mg/dL (1.8-2.4); PHOSPHOROUS 2.8 mg/dL (2.5-4.9); POTASSIUM SERUM 3.5 mmol/L (3.5-5.1)
[2018-03-29 07:10] LABS: BASOPHIL % 0.3 % (0-2); PLATELET COUNT 292 x10^3mcL (130-400); RED CELL DISTRIBUTION WIDTH 14.4 % (11.5-14.5)
[2018-03-29 09:22] VITALS: BP 108/77
[2018-03-29] MEDS ORDERED: FLO4 PO (12:39)
[2018-03-29] MEDS ORDERED: NORCO1 TA2 PO (12:40)
[2018-03-29] MEDS ORDERED: LEVAQUIN500 M1 PO (12:42)
[2018-03-29 12:53] VITALS: BP 108/77
== END 2018-03-29 13:59 | disposition home or self-care (01) | DRG 720 ==
LOC: ED 21:10 → MU 03-26 00:53
PROVIDERS: Emergency Medicine; General Practice
DX: A41.9 Sepsis, unspecified organism (principal); N17.0 Acute kidney failure with tubular necrosis; E43 Unspecified severe protein-calorie malnutrition; C78.02 Secondary malignant neoplasm of left lung; E83.42 Hypomagnesemia; E87.1 Hypo-osmolality and hyponatremia; N20.0 Calculus of kidney; N39.0 Urinary tract infection, site not specified; Z90.5 Acquired absence of kidney; Z68.30 Body mass index [BMI] 30.0-30.9, adult; Z92.21 Personal history of antineoplastic chemotherapy; Z82.49 Family history of ischemic heart disease and other diseases of the circulatory system; Z83.3 Family history of diabetes mellitus
CPT/HCPCS: 83880; 84439; 87804; J1170; J2270; J2543; J3475; J7030; Q0092